=== PATIENT | male | born 1995 | race Caucasian/White ===

== ENCOUNTER 2020-05-30 21:12 | Emergency (ER) | payer OTHER | END 2020-05-31 00:10 | disposition other institution (70) | LOC: ED 21:12 | DX: Z02.89 Encounter for other administrative examinations (principal) ==

== ENCOUNTER 2020-05-30 21:12 | Emergency (ER) | payer SELFPAY ==
[~2020-05-30] VITALS: Ht 152.4 cm; Wt 55.3 kg
[2020-05-30 21:30] VITALS: Ht 152.4 cm; Wt 55.3 kg
[2020-05-30 23:50] VITALS: BP 142/83
== END 2020-05-31 00:10 | disposition other institution (70) ==
LOC: EDSEX 21:12 → ED 21:12
DX: S01.81XA Laceration without foreign body of other part of head, initial encounter (principal); S01.311A Laceration without foreign body of right ear, initial encounter; S00.01XA Abrasion of scalp, initial encounter; W22.8XXA Striking against or struck by other objects, initial encounter; Y93.89 Activity, other specified; Y92.89 Other specified places as the place of occurrence of the external cause; Y99.8 Other external cause status
CPT/HCPCS: 90715; J2001